=== PATIENT | male | born 1955 | race Caucasian/White ===

== ENCOUNTER 2018-09-06 14:42 | Emergency (ER) | payer OTHER ==
[~2018-09-06] VITALS: Ht 193 cm; Wt 102.1 kg
[2018-09-06] MEDS ORDERED: FLONASE ALLERG9.9 ML NAS (14:55)
[2018-09-06] MEDS ORDERED: AUGMENTIN 500500 M1 PO (14:55)
[2018-09-06] MEDS ORDERED: PREDNISONE10 MG PO (14:55)
[2018-09-06] MEDS ORDERED: CLARITIN10 MG PO (14:55)
== END 2018-09-06 14:57 | disposition home or self-care (01) ==
LOC: ED 14:42
DX: J01.90 Acute sinusitis, unspecified (principal); R03.0 Elevated blood-pressure reading, without diagnosis of hypertension

== ENCOUNTER → 2019-08-01 | Outpatient (CLI) | payer OTHER ==
[~2019-08-01] MED LIST: AUGMENTIN 500500 M1 PO; CLARITIN10 MG PO; FLONASE ALLERG9.9 ML NAS; PREDNISONE10 MG PO
--- NOTE | ~2019-08-01 | SLPPOC ---
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 Refer to report in [employer] for further information. Medical History Past Medical History Therapist Signature(s) Signed By: Samantha Leung State License #: [id number] 08/01/2019, 3:10 PM Referring Physician Signature I certify the need for these services furnished under this plan of treatment and while under my care. DARREN SOLOMON Date/Time CM:SLPPOC 1514 1514 [facility]
--- NOTE | ~2019-08-01 | SHMRC ---
[place], [place] [facility] NAME: MARKO LUBIN UNIT #: [id number] ROOM: DOCTOR: DARREN SOLOMON Patient Name: MARKO LUBIN Date: 08/01/2019 Patient Number: [id number] Treating Therapist:Samantha Leung Patient Date of : 1955 Location: [facility] Patient Reason for Visit RAD/SH Electronic Signature(s) Signed By: Date: Samantha Leung 08/01/2019 15:10:31 Entered By: Samantha Leung on 08/01/2019 15:06:46 Arrival Information Patient Name: MARKO LUBIN Date: 08/01/2019 Patient Number: [id number] Treating Therapist:Samantha Leung Patient Date of : 1955 Location: [facility] Patient Subjective Initial evaluation completed to generate electronic medical record. Refer to report in [facility] for further information. Electronic Signature(s) Signed By: Date: Samantha Leung 08/01/2019 15:10:31 Entered By: Samantha Leung on 08/01/2019 15:06:46 Medical History Patient Name: MARKO LUBIN Date: 08/01/2019 Patient Number: [id number] Treating Therapist:Samantha Leung Patient Date of : 1955 Location: [facility] Patient Past Medical History Electronic Signature(s) Signed By: Date: Samantha Leung 08/01/2019 15:10:31 Entered By: Samantha Leung on 08/01/2019 15:06:46 Allergy List Patient Name: MARKO LUBIN Date: 08/01/2019 Patient Number: [id number] Treating Therapist:Samantha Leung Patient Date of : 1955 Location: [facility] Patient Electronic Signature(s) Signed By: Date: Samantha Leung 08/01/2019 15:10:31 Entered By: Samantha Leung on 08/01/2019 15:06:46 Arrival Information Patient Name: MARKO LUBIN Date: 08/01/2019 Patient Number: [id number] Treating Therapist:Samantha Leung Patient Date of : 1955 Location: [facility] Patient Subjective Initial evaluation completed to generate electronic medical record. Refer to report in [facility] for further information. Electronic Signature(s) [place], [place] [facility] NAME: MARKO LUBIN UNIT #: [id number] ROOM: DOCTOR: DARREN SOLOMON Signed By: Date: Samantha Leung 08/01/2019 15:10:31 Entered By: Samantha Leung on 08/01/2019 15:06:46 SuperBill Patient Name: MARKO LUBIN Date: 08/01/2019 Patient Number: [id number] Treating Therapist:Samantha Leung Patient Date of : 1955 Location: [facility] Patient Visit Start Time 1:30 PM Visit End Time 2:30 PM Visit Duration 60 minutes Procedures CPT [place] Code Intervention Modifier Minutes Units 35197 [id number] MOTION FLUOROSCOPY/SWALLOW 60 1 Total Timed Minutes 0 Total Treatment Minutes 60 Electronic Signature(s) Signed By: Date: Samantha Leung 08/01/2019 15:10:31 Entered By: Samantha Leung on 08/01/2019 15:07:43 Chief Complaint Patient Name: MARKO LUBIN Date: 08/01/2019 Patient Number: [id number] Treating Therapist:Samantha Lenug Patient Date of : 1955 Location: [facility] Patient Reason for Visit RAD/SH Electronic Signature(s) Signed By: Date: Samantha Leung 08/01/2019 15:10:31 Entered By: Samantha Leung on 08/01/2019 15:06:46 Medical History Patient Name: MARKO LUBIN Date: 08/01/2019 Patient Number: [id number] Treating Therapist:Samantha Leung Patient Date of : 1955 Location: [facility] Patient Past Medical History Electronic Signature(s) Signed By: Date: Samantha Leung 08/01/2019 15:10:31 Entered By: Samantha Leung on 08/01/2019 15:06:46 Allergy List Patient Name: MARKO LUBIN Date: 08/01/2019 Patient Number: [id number] Treating Therapist:Samantha Leung Patient Date of : 1955 Location: [facility] Patient Electronic Signature(s) Signed By: Date: [place], [place] [facility] NAME: MARKO LUBIN UNIT #: [id number] ROOM: DOCTOR: DARREN SOLOMON Maryann 08/01/2019 15:10:31 Entered By: Samantha Leung on 08/01/2019 15:06:46 CM:[facility] 1514 1514 [facility]
--- NOTE | ~2019-08-01 | SLPIE ---
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 Refer to report in [employer] for further information. Medical History Past Medical History [facility] [place] Visit Start Time 1:30 PM Visit End Time 2:30 PM Visit Duration 60 minutes Procedures CPT [place] Code Intervention Modifier Minutes Units 3848980 MOTION FLUOROSCOPY/SWALLOW 60 1 13666 Total Timed Minutes 0 Total Treatment Minutes 60 Therapist Signature(s) Signed By: Samantha Leung [facility] License #: [id number] 08/01/2019, 3:10 PM CM:ASIYA 1514 1514 [facility]
--- NOTE | ~2019-08-01 | PROC NOTE ---
[place], [place] PROCEDURE NOTE [id number] UNIT #: [id number] ROOM: DOCTOR: CONSUELOWILL BIRTHDATE: [birth year] DOS: 08/01/2019 MODIFIED BARRIUM SWALLOW ORDERING PHYSICIAN: Dr. Rudd. RADIOLOGIST: Dr. Crain. BACKGROUND INFORMATION: The patient, a 63-year-old male who was seen for a modified barium swallow. This test was ordered to rule out aspiration and ensure safe tolerance of present diet. A prior modified barium swallow was performed last year and revealed slow, but functional mastication with solids and mild pooling in the vallecula with solids, which cleared with subsequent swallow. This patient is diagnosed with non-typical ALS. For the assessment this date, he was alert and able to follow commands. His speech was slow and mildly dysarthric, but understandable. He receives a regular diet and thin liquid. Oral peripheral examination revealed presence of natural teeth, which were in good condition. Lingual, labial, and buccal skills were mildly slow and weak overall. Strength was within functional limits as well as coordination. The patient was able to volitionally swallow. His volitional cough was weak. METHODS AND MATERIALS USED FOR THE EXAM: The patient was positioned in the lateral plane and the exam was viewed under fluoroscopy. The patient was presented with a variety of consistencies to assess swallowing skills including applesauce mixed with barium presented in half teaspoon amounts, barium-coated cookie given in bite size piece and thin liquid barium taken by cup and straw in single and consecutive sip size amounts. ORAL PHASE: The patient achieved adequate labial seal around cup, spoon and straw with no anterior loss. Bolus formation and transit were adequate. Mastication was slow, but functional. Tongue to palate contact was within normal limits. Tongue retraction was mildly impaired. Velar functioning was within normal limits with no nasal regurgitation. PHARYNGEAL PHASE: The pharyngeal swallow occurred within a timely manner. Laryngeal elevation and epiglottic function were adequate with no penetration or aspiration occurring. Mild pooling in the vallecula was noted with puree and solid, this cleared with subsequent swallow or liquid wash. No penetration or aspiration occurred. ESOPHAGEAL PHASE: This phase of the swallow was not formally assessed during this exam. IMPRESSIONS AND RECOMMENDATIONS: Based upon assessment results, this 63-year-old male presents with a mild oropharyngeal dysphagia characterized by slow, but functional mastication with solid and mild pooling in the vallecula, which cleared with subsequent swallow or liquid wash. Recommend patient remain on present diet with continued use of safe swallow precautions such as small bites and sips, alternating liquid and solid and dry swallows after every couple of bites to clear the pharynx. No followup therapy is warranted at this time. [place], [place] PROCEDURE NOTE NAME: MARKO LUBIN [place] UNIT #: [id number] ROOM: DOCTOR: WILL CORDERO BIRTHDATE: [birth year] Results and recommendations were shared with the patient and his spouse and they verbalized understanding. Thank you very much for this referral. Should you have any questions regarding this patient, please contact the speech pathologist at [phone]. WILL CORDERO CM:PROCNOTE:PROCEDURE NOTE 1516 0048 WILL CORDERO
--- NOTE | 2019-08-01 14:56 | NUR ---
SPEECH PATHOLOGY Outpatient MBS completed as per orders. Patient is diagnosed with nontypical ALS and this study has been ordered to r/o aspiration and ensure safe tolerance of present diet. A prior MBS was performed last year and revealed slow but functional mastication with solids and mild pooling in valleculae with solids which cleared with subsequent swallow. For today's study he was alert and cooperative. Results revealed a mild oropharyngeal dysphagia characterized by much the same results as last year, with slow but functional mastication and mild pooling in valleculae which cleared with subsequent swallow or liquid wash. Recommend he remain on present diet with continued use of safe swallow precautions such as small bites/sips, alternating liquid and solid and dry swallows after every couple bites to clear pharynx. No follow up is warranted. Results and vu. were shared with patient and spouse and they verbalized understanding. Dictated report to follow. Thank you for this referral. WILL CORDERO MSCCC-CREDIT UNION EXAMINER
== END | disposition home or self-care (01) ==
LOC: RAD/SH 13:30
DX: G12.21 Amyotrophic lateral sclerosis (principal)

== ENCOUNTER 2021-07-28 12:03 | Inpatient (IN) | payer OTHER ==
[~2021-07-28] VITALS: Ht 193 cm; Wt 86.7 kg
[2021-07-28 12:07] VITALS: BP 118/79
[2021-07-28 13:06] LABS: BASO % 0.2 % (0.0-1.0); HEMATOCRIT 43.4 % (42.0-52.0); LYMPH # 1.2 10*3/uL (1.3-4.4); LYMPH % 21.2 % (27.0-41.0); MEAN CELL VOLUME 87.5 fl (80.0-94.0); MEAN CORPUSCULAR HGB 28.8 pg (27.0-31.0); MEAN CORPUSCULAR HGB CONC 32.9 g/dl (33.0-37.0); MONO # 0.4 10*3/uL (0.1-1.0); MONO % 7.5 % (3.0-9.0); NEUT # 3.9 10*3/uL (2.3-7.9); NEUT % 70.7 % (47.0-73.0); PLATELET COUNT AUTOMATED 152 10*3/uL (130-400); RED BLOOD COUNT 4.96 10*6/uL (4.50-5.90); RED CELL DISTRI WIDTH 13.3 % (0-14.5); WHITE BLOOD COUNT 5.5 10*3/uL (4.8-10.8)
[2021-07-28 13:16] VITALS: BP 122/74
[2021-07-28 13:30] LABS: ABG BASE EXCESS -1.1 mmol/L (-2.0-2.0); ARTERIAL BLOOD GAS PH 7.432 (7.35-7.45); ARTERIAL BLOOD GAS PO2 66.8 (80-90)
[2021-07-28 13:30] LABS: ALBUMIN 2.9 gm/dl (3.1-4.5); ALKALINE PHOSPHATASE 52 U/L (45-117); BUN 16 mg/dl (7-24); CHLORIDE 102 mmol/L (98-107); CPK 584 U/L (39-308); POTASSIUM 4.3 mmol/L (3.5-5.1); SGOT/AST 46 IU/L (3-35); SGPT/ALT 35 U/L (12-78); SODIUM 133 mmol/L (136-145); TOTAL PROTEIN 6.7 gm/dL (6.4-8.2); TROPONIN I 0.017 ng/ml (<0.045)
[2021-07-28 13:33] LABS: ACT PARTIAL THROMBO TIME 36.4 SECONDS (20.0-32.1)
[2021-07-28 17:27] VITALS: BP 129/77
[2021-07-28 23:50] VITALS: BP 132/81
[2021-07-29 06:27] LABS: HEMATOCRIT 43.4 % (42.0-52.0); LYMPH # 0.9 10*3/uL (1.3-4.4); LYMPH % 18.5 % (27.0-41.0); MEAN CELL VOLUME 88.2 fl (80.0-94.0); MEAN CORPUSCULAR HGB 29.3 pg (27.0-31.0); MEAN CORPUSCULAR HGB CONC 33.2 g/dl (33.0-37.0); MEAN PLATELET VOLUME 9.7 fl (9.6-12.3); MONO # 0.4 10*3/uL (0.1-1.0); MONO % 8.7 % (3.0-9.0); NEUT # 3.7 10*3/uL (2.3-7.9); NEUT % 72.4 % (47.0-73.0); PLATELET COUNT AUTOMATED 170 10*3/uL (130-400); RED BLOOD COUNT 4.92 10*6/uL (4.50-5.90); RED CELL DISTRI WIDTH 13.3 % (0-14.5); WHITE BLOOD COUNT 5.1 10*3/uL (4.8-10.8)
[2021-07-29 06:44] LABS: ALBUMIN 2.5 gm/dl (3.1-4.5); ALKALINE PHOSPHATASE 48 U/L (45-117); BUN 17 mg/dl (7-24); CHLORIDE 102 mmol/L (98-107); POTASSIUM 4.7 mmol/L (3.5-5.1); SGOT/AST 41 IU/L (3-35); SGPT/ALT 31 U/L (12-78); SODIUM 136 mmol/L (136-145); TOTAL PROTEIN 6.5 gm/dL (6.4-8.2)
[2021-07-29 08:00] VITALS: BP 118/80
[2021-07-29 12:00] VITALS: BP 113/72
[2021-07-29 16:00] VITALS: BP 125/80
[2021-07-29 20:00] VITALS: BP 134/80
[2021-07-30] VITALS: BP 144/84
[2021-07-30 07:33] LABS: BUN 24 mg/dl (7-24); CHLORIDE 105 mmol/L (98-107); CREATININE 0.72 mg/dL (0.70-1.30); POTASSIUM 4.8 mmol/L (3.5-5.1); SODIUM 138 mmol/L (136-145)
[2021-07-30 08:00] VITALS: BP 109/78
[2021-07-30 11:54] VITALS: BP 118/77
[2021-07-30 16:00] VITALS: BP 129/92
[2021-07-30 20:00] VITALS: BP 130/79
[2021-07-31] VITALS: BP 140/84
[2021-07-31 06:20] LABS: ALBUMIN 2.6 gm/dl (3.1-4.5); ALKALINE PHOSPHATASE 49 U/L (45-117); BUN 27 mg/dl (7-24); CPK 252 U/L (39-308); CREATININE 0.66 mg/dL (0.70-1.30); SGOT/AST 33 IU/L (3-35); SGPT/ALT 33 U/L (12-78); TOTAL PROTEIN 6.3 gm/dL (6.4-8.2)
[2021-07-31 06:47] LABS: BASO % 0.1 % (0.0-1.0); HEMATOCRIT 46.5 % (42.0-52.0); LYMPH % 13.2 % (27.0-41.0); MEAN CELL VOLUME 87.7 fl (80.0-94.0); MEAN CORPUSCULAR HGB 28.7 pg (27.0-31.0); MEAN CORPUSCULAR HGB CONC 32.7 g/dl (33.0-37.0); MEAN PLATELET VOLUME 10.1 fl (9.6-12.3); MONO % 13.5 % (3.0-9.0); NEUT # 5.3 10*3/uL (2.3-7.9); NEUT % 72.8 % (47.0-73.0); RED CELL DISTRI WIDTH 13.2 % (0-14.5); WHITE BLOOD COUNT 7.3 10*3/uL (4.8-10.8)
[2021-07-31 06:48] LABS: PLATELET COUNT AUTOMATED 263 10*3/uL (130-400)
[2021-07-31 06:52] LABS: CHLORIDE 108 mmol/L (98-107); POTASSIUM 4.5 mmol/L (3.5-5.1); SODIUM 140 mmol/L (136-145)
[2021-07-31 08:00] VITALS: BP 129/66
[2021-07-31 12:00] VITALS: BP 128/77
[2021-07-31 15:00] VITALS: BP 134/84
[2021-07-31 20:00] VITALS: BP 133/89
[2021-08-01] VITALS: BP 143/91
[2021-08-01 06:09] LABS: ALBUMIN 2.6 gm/dl (3.1-4.5); ALKALINE PHOSPHATASE 46 U/L (45-117); BUN 26 mg/dl (7-24); CHLORIDE 109 mmol/L (98-107); CREATININE 0.61 mg/dL (0.70-1.30); POTASSIUM 4.4 mmol/L (3.5-5.1); SGOT/AST 29 IU/L (3-35); SGPT/ALT 36 U/L (12-78); SODIUM 141 mmol/L (136-145); TOTAL PROTEIN 6.3 gm/dL (6.4-8.2)
[2021-08-01 06:20] LABS: CPK 130 U/L (39-308)
[2021-08-01 06:45] LABS: BASO % 0.2 % (0.0-1.0); HEMATOCRIT 45.9 % (42.0-52.0); LYMPH # 0.8 10*3/uL (1.3-4.4); LYMPH % 11.9 % (27.0-41.0); MEAN CELL VOLUME 87.4 fl (80.0-94.0); MEAN CORPUSCULAR HGB CONC 33.1 g/dl (33.0-37.0); MEAN PLATELET VOLUME 9.7 fl (9.6-12.3); MONO # 0.9 10*3/uL (0.1-1.0); MONO % 13.7 % (3.0-9.0); NEUT # 4.8 10*3/uL (2.3-7.9); NEUT % 73.7 % (47.0-73.0); PLATELET COUNT AUTOMATED 262 10*3/uL (130-400); RED BLOOD COUNT 5.25 10*6/uL (4.50-5.90); RED CELL DISTRI WIDTH 13.1 % (0-14.5); WHITE BLOOD COUNT 6.6 10*3/uL (4.8-10.8)
[2021-08-01 08:00] VITALS: BP 114/67
[2021-08-01 12:00] VITALS: BP 128/80
[2021-08-01 16:00] VITALS: BP 140/89
[2021-08-01 20:00] VITALS: BP 151/86
[2021-08-02] VITALS: BP 112/66
[2021-08-02 06:24] LABS: HEMATOCRIT 47.5 % (42.0-52.0); LYMPH # 1.2 10*3/uL (1.3-4.4); LYMPH % 15.4 % (27.0-41.0); MEAN CELL VOLUME 88.5 fl (80.0-94.0); MEAN CORPUSCULAR HGB 28.9 pg (27.0-31.0); MEAN CORPUSCULAR HGB CONC 32.6 g/dl (33.0-37.0); MONO % 12.5 % (3.0-9.0); NEUT # 5.6 10*3/uL (2.3-7.9); NEUT % 71.6 % (47.0-73.0); PLATELET COUNT AUTOMATED 287 10*3/uL (130-400); RED BLOOD COUNT 5.37 10*6/uL (4.50-5.90); RED CELL DISTRI WIDTH 12.9 % (0-14.5); WHITE BLOOD COUNT 7.8 10*3/uL (4.8-10.8)
[2021-08-02 06:51] LABS: ALBUMIN 2.6 gm/dl (3.1-4.5); BUN 27 mg/dl (7-24); CHLORIDE 107 mmol/L (98-107); CREATININE 0.73 mg/dL (0.70-1.30); POTASSIUM 4.5 mmol/L (3.5-5.1); SGPT/ALT 49 U/L (12-78); SODIUM 142 mmol/L (136-145); TOTAL PROTEIN 6.4 gm/dL (6.4-8.2)
[2021-08-02 06:54] LABS: ALKALINE PHOSPHATASE 50 U/L (45-117); SGOT/AST 36 IU/L (3-35)
[2021-08-02 06:55] LABS: CPK 94 U/L (39-308)
[2021-08-02 08:00] VITALS: BP 117/74
[2021-08-02 12:00] VITALS: BP 146/76
[2021-08-02 15:55] VITALS: BP 140/88
[2021-08-02 20:00] VITALS: BP 140/85
[2021-08-03] VITALS: BP 129/69
[2021-08-03 06:27] LABS: BASO % 0.1 % (0.0-1.0); EOS % 0.1 % (1.0-4.0); HEMATOCRIT 48.1 % (42.0-52.0); LYMPH # 1.2 10*3/uL (1.3-4.4); LYMPH % 14.2 % (27.0-41.0); MEAN CORPUSCULAR HGB 28.4 pg (27.0-31.0); MEAN CORPUSCULAR HGB CONC 32.6 g/dl (33.0-37.0); MEAN PLATELET VOLUME 9.7 fl (9.6-12.3); MONO % 11.9 % (3.0-9.0); NEUT # 6.4 10*3/uL (2.3-7.9); PLATELET COUNT AUTOMATED 307 10*3/uL (130-400); RED BLOOD COUNT 5.53 10*6/uL (4.50-5.90); RED CELL DISTRI WIDTH 12.8 % (0-14.5); WHITE BLOOD COUNT 8.7 10*3/uL (4.8-10.8)
[2021-08-03 06:45] LABS: ALBUMIN 2.6 gm/dl (3.1-4.5); ALKALINE PHOSPHATASE 54 U/L (45-117); BUN 26 mg/dl (7-24); CHLORIDE 105 mmol/L (98-107); CREATININE 0.72 mg/dL (0.70-1.30); POTASSIUM 4.5 mmol/L (3.5-5.1); SGOT/AST 24 IU/L (3-35); SGPT/ALT 50 U/L (12-78); SODIUM 139 mmol/L (136-145); TOTAL PROTEIN 6.5 gm/dL (6.4-8.2)
[2021-08-03 06:47] LABS: CPK 46 U/L (39-308)
[2021-08-03 08:00] VITALS: BP 127/75
[2021-08-03 12:00] VITALS: BP 144/74
[2021-08-03 16:00] VITALS: BP 128/77
[2021-08-03 20:00] VITALS: BP 130/88
[2021-08-04 04:25] VITALS: BP 145/89
[2021-08-04 06:42] LABS: BASO % 0.2 % (0.0-1.0); EOS % 0.2 % (1.0-4.0); LYMPH # 1.2 10*3/uL (1.3-4.4); LYMPH % 9.9 % (27.0-41.0); MEAN CELL VOLUME 88.2 fl (80.0-94.0); MEAN CORPUSCULAR HGB 28.9 pg (27.0-31.0); MEAN CORPUSCULAR HGB CONC 32.7 g/dl (33.0-37.0); MEAN PLATELET VOLUME 9.8 fl (9.6-12.3); MONO # 1.5 10*3/uL (0.1-1.0); MONO % 11.8 % (3.0-9.0); NEUT # 9.7 10*3/uL (2.3-7.9); NEUT % 77.2 % (47.0-73.0); PLATELET COUNT AUTOMATED 358 10*3/uL (130-400); RED BLOOD COUNT 5.44 10*6/uL (4.50-5.90); RED CELL DISTRI WIDTH 12.8 % (0-14.5); WHITE BLOOD COUNT 12.5 10*3/uL (4.8-10.8)
[2021-08-04 07:00] LABS: ALBUMIN 2.6 gm/dl (3.1-4.5); ALKALINE PHOSPHATASE 57 U/L (45-117); BUN 30 mg/dl (7-24); CHLORIDE 104 mmol/L (98-107); CREATININE 0.84 mg/dL (0.70-1.30); POTASSIUM 4.3 mmol/L (3.5-5.1); SGOT/AST 24 IU/L (3-35); SGPT/ALT 46 U/L (12-78); SODIUM 138 mmol/L (136-145); TOTAL PROTEIN 6.5 gm/dL (6.4-8.2)
[2021-08-04 07:08] LABS: CPK 67 U/L (39-308)
[2021-08-04 08:00] VITALS: BP 113/73
[2021-08-04 16:00] VITALS: BP 118/80
[2021-08-04 20:00] VITALS: BP 132/92
[2021-08-05] VITALS: BP 129/80
[2021-08-05 06:57] LABS: BASO % 0.1 % (0.0-1.0); EOS % 0.3 % (1.0-4.0); HEMATOCRIT 49.8 % (42.0-52.0); LYMPH # 1.2 10*3/uL (1.3-4.4); LYMPH % 12.4 % (27.0-41.0); MEAN CELL VOLUME 88.8 fl (80.0-94.0); MEAN CORPUSCULAR HGB 28.3 pg (27.0-31.0); MEAN CORPUSCULAR HGB CONC 31.9 g/dl (33.0-37.0); MEAN PLATELET VOLUME 9.9 fl (9.6-12.3); MONO # 1.1 10*3/uL (0.1-1.0); MONO % 11.8 % (3.0-9.0); NEUT # 6.9 10*3/uL (2.3-7.9); NEUT % 74.6 % (47.0-73.0); PLATELET COUNT AUTOMATED 375 10*3/uL (130-400); RED BLOOD COUNT 5.61 10*6/uL (4.50-5.90); RED CELL DISTRI WIDTH 12.9 % (0-14.5); WHITE BLOOD COUNT 9.2 10*3/uL (4.8-10.8)
[2021-08-05 07:12] LABS: ALBUMIN 2.6 gm/dl (3.1-4.5); BUN 29 mg/dl (7-24); CHLORIDE 105 mmol/L (98-107); CREATININE 0.85 mg/dL (0.70-1.30); POTASSIUM 4.5 mmol/L (3.5-5.1); SGOT/AST 16 IU/L (3-35); SGPT/ALT 40 U/L (12-78); SODIUM 140 mmol/L (136-145); TOTAL PROTEIN 6.5 gm/dL (6.4-8.2)
[2021-08-05 07:13] LABS: ALKALINE PHOSPHATASE 58 U/L (45-117); CPK 39 U/L (39-308)
[2021-08-05 08:00] VITALS: BP 110/63
[2021-08-05] MEDS ORDERED: GLYCOPYRROLATE2 MG PO (12:50)
[2021-08-05] MEDS ORDERED: ATIVAN ORAL C2 MG/ML PO (12:50)
[2021-08-05] MEDS ORDERED: MORPHINE S20 MG/5 ML PO (12:50)
[2021-08-05 16:00] VITALS: BP 128/76
== END 2021-08-05 18:10 | disposition hospice, home (50) | DRG 177 ==
LOC: ED 12:03 → 4E 16:40 → EDHOLD 16:40 → 4E 22:37
PROVIDERS: Emergency Medicine; Family Medicine; Internal Medicine; Nurse Practitioner Family; ADMIT Internal Medicine; ATTEND Internal Medicine
PROC: XW033E5 Introduction of Remdesivir Anti-infective into Peripheral Vein, Percutaneous Approach, New Technology Group 5 (ICD-10-PCS; principal; 2021-07-29)
PROC: 5A0935A Assistance with Respiratory Ventilation, Less than 24 Consecutive Hours, High Flow/Velocity Cannula (ICD-10-PCS; 2021-07-30)
PROC: 5A0945A Assistance with Respiratory Ventilation, 24-96 Consecutive Hours, High Flow/Velocity Cannula (ICD-10-PCS; 2021-07-30)
PROC: 5A0945A Assistance with Respiratory Ventilation, 24-96 Consecutive Hours, High Flow/Velocity Cannula (ICD-10-PCS; 2021-08-02)
PROC: 5A0935A Assistance with Respiratory Ventilation, Less than 24 Consecutive Hours, High Flow/Velocity Cannula (ICD-10-PCS; 2021-08-04)
DX: U07.1 COVID-19 (principal); J12.82 Pneumonia due to coronavirus disease 2019; J96.00 Acute respiratory failure, unspecified whether with hypoxia or hypercapnia; E87.1 Hypo-osmolality and hyponatremia; E44.0 Moderate protein-calorie malnutrition; G12.21 Amyotrophic lateral sclerosis; R74.01 Elevation of levels of liver transaminase levels; Z51.5 Encounter for palliative care; Z68.26 Body mass index [BMI] 26.0-26.9, adult